=== PATIENT | female | born 1970 | race Caucasian/White ===

== ENCOUNTER → 2017-10-30 07:27 | Outpatient (CLI) | payer BC | END | disposition home or self-care (01) | LOC: D.US 07:27 | DX: R10.13 Epigastric pain (principal); R10.11 Right upper quadrant pain ==

== ENCOUNTER → 2018-01-29 07:16 | Outpatient (CLI) | payer BC | END | disposition home or self-care (01) | LOC: D.US 07:16 | DX: K82.4 Cholesterolosis of gallbladder (principal) ==

== ENCOUNTER → 2018-02-09 07:17 | Outpatient (CLI) | payer BC ==
[2018-02-09 07:58] LABS: ALBUMIN 3.7 g/dL (3.4-5.0); ALKALINE PHOSPHATASE 67 U/L (46-116); ALT (SGPT) 21 U/L (10-68); BILIRUBIN - TOTAL 0.36 mg/dL (0.2-1.3); CALC OSMOLALITY 273 mosm/kg (275-300); CALCIUM 8.4 mg/dL (8.5-10.1); CARBON DIOXIDE 27.3 mmol/L (21.0-32.0); CHLORIDE - SERUM 102 mmol/L (98-107); CREATININE - SERUM 0.7 mg/dL (0.6-1.3); GLUCOSE 91 mg/dL (74-106); POTASSIUM - SERUM 3.4 mmol/L (3.5-5.1); PROTEIN - SERUM 7.4 g/dL (6.4-8.2); SODIUM 138 mmol/L (136-145); UREA NITROGEN 7 mg/dL (7-18); eGFR NON AFRICAN AMERICAN > 90 mL/min (90-120)
[2018-02-09 08:51] LABS: LIPASE 194 U/L (73-393)
== END | disposition home or self-care (01) ==
LOC: D.LAB 01-15 08:15 → D.NM 01-15 08:30 → D.LAB 02-07 09:00
PROVIDERS: Internal Medicine Gastroenterology
DX: R10.11 Right upper quadrant pain (principal); R19.7 Diarrhea, unspecified

== ENCOUNTER 2019-08-04 22:01 | Emergency (ER) | payer BC ==
[~2019-08-04] VITALS: Ht 157.5 cm; Wt 63.5 kg
[2019-08-04 22:06] VITALS: Ht 157.5 cm; Wt 63.5 kg
[2019-08-04 22:42] LABS: BASOPHILS 0.6 % (0-2); EOSINOPHILS 1.7 % (0-7); HEMATOCRIT 38.5 % (36.0-48.0); HEMOGLOBIN 12.3 g/dL (12-16); LYMPHOCYTES 38.4 % (15-50); MCHC 31.9 g/dL (31.0-37.0); MCV 93.9 fL (80.0-100.0); MEAN PLATELET VOLUME 9.2 fL (7.4-10.4); MONOCYTES 8.5 % (2-11); NEUTROPHILS 50.8 % (40-80); RDW 14.2 % (11.5-14.5); WBC 5.4 10x3/uL (4.8-10.8)
[2019-08-04 22:43] LABS: PLATELET COUNT 324 10x3/uL (130-400)
[2019-08-04 22:52] LABS: CALC OSMOLALITY 277 mosm/kg (275-300); CALCIUM 9.1 mg/dL (8.5-10.1); CARBON DIOXIDE 28.5 mmol/L (21.0-32.0); CHLORIDE - SERUM 103 mmol/L (98-107); CREATININE - SERUM 0.7 mg/dL (0.6-1.3); GLUCOSE 94 mg/dL (74-106); POTASSIUM - SERUM 3.6 mmol/L (3.5-5.1); SODIUM 140 mmol/L (136-145); UREA NITROGEN 11 mg/dL (7-18); eGFR NON AFRICAN AMERICAN > 90 mL/min (90-120)
[2019-08-04 23:01] LABS: HCG SERUM NEGATIVE (NEGATIVE)
[2019-08-04 23:18] LABS: ALBUMIN 3.9 g/dL (3.4-5.0); ALKALINE PHOSPHATASE 74 U/L (30-120); ALT (SGPT) 19 U/L (10-68); BILIRUBIN - TOTAL 0.29 mg/dL (0.2-1.3); PRO BNP 30 pg/mL (0-125); PROTEIN - SERUM 7.7 g/dL (6.4-8.2)
[2019-08-04 23:19] LABS: TROPONIN-I < 0.017 ng/mL (0.000-0.060)
[2019-08-05 00:41] VITALS: BP 122/74
== END 2019-08-05 00:42 | disposition home or self-care (01) ==
LOC: D.ER 22:01
PROVIDERS: Family Medicine
DX: R06.00 Dyspnea, unspecified (principal); R05 Cough